=== PATIENT | male | born 1970 | race Caucasian/White ===

== ENCOUNTER 2021-11-07 08:10 | Outpatient (CLI) | payer OTHER, SELFPAY ==
[2021-11-07 15:58] LABS: Chloride* 105 mmol/L (96-114); Potassium* 4.8 mmol/L (3.6-5.1); Sodium* 139 mmol/L (135-149)
[2021-11-07 16:01] LABS: Blood Urea Nitrogen* 12 mg/dL (7-30); Carbon Dioxide* 25 mmol/L (20-32); Cholesterol* 198 mg/dL (90-199); Creatinine* 0.9 mg/dL (0.5-1.5); Estimated Glomerular Filt Rate 103 ml/min; Glucose* 87 mg/dL (60-115); Triglycerides* 199 mg/dL (40-149)
[2021-11-07 16:02] LABS: Calcium* 8.8 mg/dL (8.4-10.6); HDL Cholesterol* 52 mg/dL (>=40); LDL Cholesterol Calculated 106 mg/dL (<100)
[2021-11-07 16:34] LABS: PSA Screen* 2.14 ng/mL (0.10-4.00)
== END 2021-11-07 08:11 | disposition home or self-care (01) ==
PROVIDERS: PCP Family Medicine; Visit Provider Family Medicine
DX: Z00.00 Encounter for general adult medical examination without abnormal findings (principal); Z12.5 Encounter for screening for malignant neoplasm of prostate; Z13.6 Encounter for screening for cardiovascular disorders; J45.40 Moderate persistent asthma, uncomplicated; Z86.010 Personal history of colon polyps
CPT/HCPCS: 80048; 80061; 84153

== ENCOUNTER 2024-02-03 07:42 | Outpatient (CLI) | payer OTHER, SELFPAY | END 2024-02-03 07:43 | disposition home or self-care (01) | LOC: FRMREF 07:42 | PROVIDERS: Visit Provider Nurse Practitioner Family | DX: Z12.5 Encounter for screening for malignant neoplasm of prostate (principal) | CPT/HCPCS: G0103 ==

== ENCOUNTER 2024-12-29 10:16 | Outpatient (CLI) | payer OTHER, SELFPAY | END 2024-12-29 10:17 | disposition home or self-care (01) | PROVIDERS: PCP Nurse Practitioner Family; Visit Provider Nurse Practitioner Family | DX: Z13.9 Encounter for screening, unspecified (principal); Z13.6 Encounter for screening for cardiovascular disorders | CPT/HCPCS: 80053; 80061 ==

== ENCOUNTER 2025-01-30 08:37 | Outpatient (CLI) | payer OTHER, SELFPAY ==
--- NOTE | 2025-01-30 09:45 | P.ANES_ITS ---
Anesthesia Charges Start Date/Time Anesthesia Start Date: 01/30/25 Anesthesia Start Time: 09:15 Stop Date/Time Anesthesia Stop Date: 01/30/25 Anesthesia Stop Time: 09:42 Coding CPT Codes CPT Codes: ANES LWR INTST NDSC NOS - [id number] ([id number]) P3 - PATIENT W/SEVERE SYS DISEASE, QK - GIS INSTRUCTOR 2-4 CNCRNT ANES PROC, QX - OUTSIDE PROPERTY AGENT SVC W/ MD MED DIRECTION
--- NOTE | 2025-01-30 09:45 | W.ANESCHARGE ---
Anesthesia Charges Start Date/Time Anesthesia Start Date: 01/30/25 Anesthesia Start Time: 09:15 Stop Date/Time Anesthesia Stop Date: 01/30/25 Anesthesia Stop Time: 09:42 Coding CPT Codes CPT Codes: ANES LWR INTST NDSC NOS - [id number] ([id number]) P3 - PATIENT W/SEVERE SYS DISEASE, QK - PROGRAMMER ENGINEERING AND SCIENTIFIC 2-4 CNCRNT ANES PROC, QX - TECHNOLOGY ENGINEER SVC W/ MD MED DIRECTION
--- NOTE | 2025-01-30 10:12 | P.ANES_ITS ---
Anesthesia Charges Start Date/Time Anesthesia Start Date: 01/30/25 Anesthesia Start Time: 09:15 Stop Date/Time Anesthesia Stop Date: 01/30/25 Anesthesia Stop Time: 09:42 Coding CPT Codes CPT Codes: ANES LWR INTST NDSC NOS - [id number] ([id number]) QX - SALES REPRESENTATIVE WIRE ROPE SVC W/ MD MED DIRECTION, QK - RELIGION TEACHER 2-4 CNCRNT ANES PROC, P3 - PATIENT W/SEVERE SYS DISEASE
--- NOTE | 2025-01-30 10:12 | W.ANESCHARGE ---
Anesthesia Charges Start Date/Time Anesthesia Start Date: 01/30/25 Anesthesia Start Time: 09:15 Stop Date/Time Anesthesia Stop Date: 01/30/25 Anesthesia Stop Time: 09:42 Coding CPT Codes CPT Codes: ANES LWR INTST NDSC NOS - [id number] ([id number]) QX - WELDER FITTER HELPER SVC W/ MD MED DIRECTION, QK - MEDICAL GRADE SHOEMAKER 2-4 CNCRNT ANES PROC, P3 - PATIENT W/SEVERE SYS DISEASE
== END 2025-01-30 08:38 | disposition home or self-care (01) ==
LOC: OP CLINIC 08:39
PROVIDERS: PCP Nurse Practitioner Family; Visit Provider Internal Medicine
DX: Z12.11 Encounter for screening for malignant neoplasm of colon (principal); D12.2 Benign neoplasm of ascending colon; D12.3 Benign neoplasm of transverse colon; K57.30 Diverticulosis of large intestine without perforation or abscess without bleeding
CPT/HCPCS: 00811; 00812; 45380; J2704